=== PATIENT | female | born 1970 | race Hispanic/Latino ===

== ENCOUNTER 2019-06-18 21:01 | Inpatient (IN) | payer SELFPAY ==
[~2019-06-18] VITALS: Ht 162.6 cm; Wt 82.2 kg
[2019-06-18] MEDS ORDERED: SODIUM CHLORIDE 0.9% 1000ML 1,000 ML IV ONE ×3 (21:21→23:42)
[2019-06-18] MEDS ORDERED: ONDANSETRON HCL 4 MG/2 ML VIAL ONE (21:21)
[2019-06-18 21:32] LABS: EOSINOPHILS % (AUTO) 2.4 % (0.0-8.0); HEMATOCRIT 46.7 % (36-48); LYMPHOCYTES % (AUTO) 40.9 % (21.0-51.0); MEAN CORPUSCULAR HGB CONC 33.8 g/dL (32.0-36.0); MEAN CORPUSCULAR VOLUME 91.8 fL (79-99); MONOCYTES % (AUTO) 6.1 % (3.0-13.0); NEUTROPHILS % (AUTO) 49.6 % (40.0-77.0); PLATELET COUNT (AUTO) 306 K/uL (130-400); RED BLOOD CELL COUNT(AUTO) 5.09 MIL/uL (4.00-5.50); RED CELL DISTRIBUTION WIDTH 14.5 % (11.0-15.5); WHITE BLOOD COUNT (AUTO) 12.6 K/uL (4.8-10.8)
[2019-06-18 21:37] LABS: APPEARANCE,URINE Cloudy (CLEAR); BILIRUBIN,URINE Negative (NEGATIVE); COLOR,URINE Yellow (YELLOW); GLUCOSE, URINE (UA) >=1000 mg/dL (NEGATIVE); KETONES,URINE Negative (NEGATIVE); LEUKOCYTE ESTERASE ,URINE Moderate (NEGATIVE); NITRATE,URINE Negative (NEGATIVE); OCCULT BLOOD,URINE Moderate (NEGATIVE); PH,URINE 5.5 (5.0-8.0); PROTEIN,URINE Negative (NEGATIVE); UROBILINOGEN,URINE 0.2 mg/dL (0.2-1.0)
[2019-06-18 21:39] LABS: HCG,QUAL RESULT NEGATIVE (NEGATIVE)
[2019-06-18] MEDS ORDERED: KETOROLAC TROMETHAMINE 30MG/ML ONE (21:41)
[2019-06-18 21:46] LABS: BACTERIA,URINE Moderate /HPF (None Seen); MUCUS,URINE Few LPF (None Seen)
[2019-06-18 21:55] LABS: ALBUMIN 3.5 g/dL (3.5-5.0); BILIRUBIN,TOTAL 0.4 mg/dL (0.2-1.0); CREATININE 0.8 mg/dL (0.5-1.5); POTASSIUM 3.4 mmol/L (3.5-5.1); TOTAL PROTEIN, SERUM 8.3 g/dL (6.0-8.3)
[2019-06-18] MEDS ORDERED: IOHEXOL-350 75 ML VIAL IV ONE (22:05)
[2019-06-18 22:07] LABS: INR 0.91 (0.85-1.15); PARTIAL THROMBOPLASTIN TIME 24.3 SEC (26.3-35.5); PROTHROMBIN TIME 9.6 SEC (9.6-11.6)
[2019-06-18] MEDS ORDERED: CEFTRIAXONE SODIUM 1 GM ONE (22:47)
[2019-06-18 22:48] LABS: ABG OXYGEN SATURATION 83.1 % (95.0-99.0); BASE EXCESS,VENOUS BLOOD GAS -0.2 (-2.0-3.0); HCO3,VENOUS BLOOD GAS 24.8 (21.0-28.0); PCO2,VENOUS BLOOD GAS 42 (32-45); PH,VENOUS BLOOD GAS 7.393 (7.350-7.450)
[2019-06-18] MEDS ORDERED: INSULIN HUMULIN R 100 UNIT/ML 3ML ONE (23:43)
[2019-06-19] MEDS ORDERED: SODIUM CHLORIDE 0.9% 1000ML 1,000 ML IV SCH (02:57)
[2019-06-19 03:00] VITALS: BP 149/95
[2019-06-19] MEDS ORDERED: ACETAMINOPHEN 325 MG TAB PO PRN ×2 (03:00)
[2019-06-19] MEDS ORDERED: FAMOTIDINE/PF 20 MG/2 ML VIAL IV SCH (03:15)
[2019-06-19] MEDS ORDERED: KETOROLAC TROMETHAMINE 30MG/ML ONE (04:26)
[2019-06-19] MEDS: INSULIN HUMULIN R 100 UNIT/ML 3ML SQ SCH ×4 (06:32→20:47)
[2019-06-19 08:00] VITALS: BP 134/78
[2019-06-19] MEDS ORDERED: FLUCONAZOLE 100 MG TAB PO SCH (09:00)
[2019-06-19] MEDS: KETOROLAC TROMETHAMINE 30MG/ML IV PRN ×2 (09:02→15:47)
[2019-06-19] MEDS: PHENAZOPYRIDINE HCL 200 MG TABLET PO SCH ×3 (09:06→20:49)
[2019-06-19] MEDS: ENOXAPARIN SODIUM 30 MG/0.3 ML SQ SCH (09:07)
[2019-06-19] MEDS: ONDANSETRON HCL 4 MG/2 ML VIAL IV PRN ×2 (09:15→20:56)
[2019-06-19 11:51] VITALS: BP 138/93
--- NOTE | 2019-06-19 11:56 | NUR ---
Nutrition Intervention: Nutrition consult due to new onset DM. Pt. on 75gm CCD diet with good p.o. intake, as per pt. Labs reviewed(Alb 3.5, BG 320). LBM: 06/18/19. SR-aldair Bergeron. BMI: 31.1, Obesity Grade 1. Pt. educated on Diabetic diet and provided with education material. Pt. verbalized understanding. Recommendations: 1) Continue current diet. 2) Diabetic diet education given to patient. 3) Continue to monitor pt's nutritional status. 4) Consult RD as nutrition concerns arise. Addendum: 06/19/19 at [address] Amended: Links added.
[2019-06-19] MEDS ORDERED: POTASSIUM CHLORIDE 20MEQ/100ML 100 ML IV PRN (13:00)
[2019-06-19] MEDS ORDERED: LIDOCAINE HCL-MPF 1% 2ML VIAL IV PRN (13:00)
[2019-06-19] MEDS ORDERED: POTASSIUM CHLORIDE 10% ELIXIR 20 MEQ/15 ML UDCUP PO PRN (13:00)
[2019-06-19] MEDS: POTASSIUM CHLORIDE 20 MEQ ERTAB PO PRN ×2 (14:12→18:45)
[2019-06-19 16:00] VITALS: BP 147/92
--- NOTE | 2019-06-19 17:01 | NUR ---
Initial: Met w pt this afternoon to discuss dcp. Pt mentions that she lives w her spouse/son and dtr. Prior to admission she was independent w ambulation and ADLs. She does not own any DME or receive services. per pt she feels safe and comfortable to return home at ca. Provided pt w low income packet and discussed importance of establishing care w PCP. DCP for home. CM to continue to follow and wait for Md recommendations. Addendum: 06/20/19 at 1803 by ANGIE LESLIE CM Amended: Links added.
[2019-06-19 20:00] VITALS: BP 148/93
[2019-06-19] MEDS: CEFTRIAXONE SODIUM 1 GM IV SCH (20:49)
[2019-06-19] MEDS: FAMOTIDINE 20MG TAB 20 MG TAB PO SCH (20:49)
[2019-06-20] VITALS: BP 129/77
[2019-06-20 04:00] VITALS: BP 148/89
[2019-06-20 06:26] LABS: CREATININE 0.6 mg/dL (0.5-1.5); POTASSIUM 3.7 mmol/L (3.5-5.1)
[2019-06-20 06:28] LABS: HEMOGLOBIN A1C 11.5 % (4.0-6.0)
[2019-06-20 06:30] LABS: HEMATOCRIT 40.3 % (36-48); MEAN CORPUSCULAR HEMOGLOBIN 31.2 pg (27.0-33.0); MEAN CORPUSCULAR HGB CONC 33.8 g/dL (32.0-36.0); MEAN CORPUSCULAR VOLUME 92.2 fL (79-99); PLATELET COUNT (AUTO) 219 K/uL (130-400); RED BLOOD CELL COUNT(AUTO) 4.37 MIL/uL (4.00-5.50); RED CELL DISTRIBUTION WIDTH 14.4 % (11.0-15.5); WHITE BLOOD COUNT (AUTO) 7.5 K/uL (4.8-10.8)
[2019-06-20] MEDS: INSULIN HUMULIN R 100 UNIT/ML 3ML SQ SCH ×4 (07:22→20:05)
[2019-06-20 08:00] VITALS: BP 150/70
[2019-06-20] MEDS: FAMOTIDINE 20MG TAB 20 MG TAB PO SCH ×2 (09:03→20:01)
[2019-06-20] MEDS: PHENAZOPYRIDINE HCL 200 MG TABLET PO SCH ×3 (09:03→20:04)
[2019-06-20] MEDS: ENOXAPARIN SODIUM 30 MG/0.3 ML SQ SCH (09:04)
[2019-06-20] MEDS: KETOROLAC TROMETHAMINE 30MG/ML IV PRN ×2 (09:04→20:08)
[2019-06-20 12:00] VITALS: BP 138/79
[2019-06-20] MEDS ORDERED: METFORMIN HCL 500 MG TAB.SR.24H PO SCH (13:15)
[2019-06-20 15:45] VITALS: BP 133/76
[2019-06-20] MEDS: METFORMIN HCL 500 MG TAB.SR.24H PO SCH (16:23)
[2019-06-20 20:00] VITALS: BP 154/78
[2019-06-20] MEDS: CEFTRIAXONE SODIUM 1 GM IV SCH (20:01)
[2019-06-21] VITALS: BP 137/74
[2019-06-21 04:00] VITALS: BP 129/73
[2019-06-21 05:10] LABS: CREATININE 0.7 mg/dL (0.5-1.5); POTASSIUM 3.5 mmol/L (3.5-5.1)
[2019-06-21 05:11] LABS: HEMATOCRIT 41.5 % (36-48); MEAN CORPUSCULAR HEMOGLOBIN 31.6 pg (27.0-33.0); MEAN CORPUSCULAR HGB CONC 33.9 g/dL (32.0-36.0); MEAN CORPUSCULAR VOLUME 93.2 fL (79-99); PLATELET COUNT (AUTO) 209 K/uL (130-400); RED BLOOD CELL COUNT(AUTO) 4.45 MIL/uL (4.00-5.50); RED CELL DISTRIBUTION WIDTH 14.5 % (11.0-15.5)
[2019-06-21] MEDS: INSULIN HUMULIN R 100 UNIT/ML 3ML SQ SCH ×2 (06:22→12:15)
[2019-06-21 07:39] VITALS: BP 126/80
[2019-06-21] MEDS: METFORMIN HCL 500 MG TAB.SR.24H PO SCH ×2 (08:15→16:49)
[2019-06-21] MEDS: FAMOTIDINE 20MG TAB 20 MG TAB PO SCH (08:15)
[2019-06-21] MEDS: ENOXAPARIN SODIUM 30 MG/0.3 ML SQ SCH (08:18)
[2019-06-21] MEDS: PHENAZOPYRIDINE HCL 200 MG TABLET PO SCH ×2 (08:21→12:26)
[2019-06-21 12:00] VITALS: BP 127/88
[2019-06-21] MEDS: POTASSIUM CHLORIDE 20 MEQ ERTAB PO PRN ×2 (13:55→16:49)
[2019-06-21] MEDS ORDERED: FLUCONAZOLE 100 MG TAB PO SCH (14:15)
[2019-06-21] MEDS ORDERED: LACTULOSE 20 GM/30 ML UDCUP PO SCH (15:15)
[2019-06-21] MEDS ORDERED: FLUC150T PO (15:18)
[2019-06-21] MEDS ORDERED: METF-444 PO (15:20)
[2019-06-21 17:54] VITALS: BP 113/73
--- NOTE | 2019-06-21 19:45 | NUR ---
PATIENT WAS PROVIDED WITH DISCHARGE INFORMATION AND FOLLOW UP RECOMMENDATION. SHE WAS INFORMED THAT HER PRESCRIPTIONS WERE SENT TO HER PREFERRED PHARMACY AND SHE RETURNED UNDERSTANDING. IV ACCESS WAS REMOVED WITHOUT PROBLEM. PATIENT LEFT THE UNIT IN STABLE CONDITION IN CARE OF SELF AND SPOUSE.
== END 2019-06-21 19:50 | disposition home or self-care (01) | DRG 690 ==
LOC: EDH 21:01 → EDHIP 21:02 → 3CH 06-19 02:57
PROVIDERS: ADMIT Internal Medicine; ATTEND Internal Medicine
DX: N39.0 Urinary tract infection, site not specified (principal); E11.65 Type 2 diabetes mellitus with hyperglycemia; I10 Essential (primary) hypertension; B37.3 Candidiasis of vulva and vagina; E66.9 Obesity, unspecified; Z68.31 Body mass index [BMI] 31.0-31.9, adult; Z86.32 Personal history of gestational diabetes
CPT/HCPCS: 36415; 36600; 74177; 76856; 80048; 80053; 81001; 81025; 82010; 82803; 82948; 83036; 83605; 84484; 85025; 85027; 85610; 85730; 87040; 87088; 93005; G0378; J0696; J1650; J1815; J1885; J2405; J3490; J7030; Q9967

== ENCOUNTER 2020-01-19 03:28 | Observation (INO) | payer OTHER ==
[~2020-01-19] VITALS: Ht 162.6 cm; Wt 87.8 kg
[~2020-01-19 03:28] MED LIST: FLUC150T PO; METF-444 PO
[2020-01-19] MEDS ORDERED: ASPIRIN 325 MG TABLET ONE (03:30)
[2020-01-19] MEDS ORDERED: NITROGLYCERIN 1GM/1 INCH PACKET TD ONE (03:42)
[2020-01-19 03:44] LABS: BASOPHILS % (AUTO) 0.5 % (0.0-5.0); EOSINOPHILS % (AUTO) 1.7 % (0.0-8.0); LYMPHOCYTES % (AUTO) 33.9 % (21.0-51.0); MEAN CORPUSCULAR HEMOGLOBIN 28.5 pg (27.0-33.0); MEAN CORPUSCULAR HGB CONC 32.9 g/dL (32.0-36.0); MEAN CORPUSCULAR VOLUME 86.7 fL (79-99); MONOCYTES % (AUTO) 5.4 % (3.0-13.0); NEUTROPHILS % (AUTO) 58.2 % (40.0-77.0); PLATELET COUNT (AUTO) 284 K/uL (130-400); RED BLOOD CELL COUNT(AUTO) 4.73 MIL/uL (4.00-5.50); RED CELL DISTRIBUTION WIDTH 12.7 % (11.0-15.5); WHITE BLOOD COUNT (AUTO) 10.8 K/uL (4.8-10.8)
[2020-01-19 03:50] LABS: CREATININE 0.8 mg/dL (0.5-1.5); POTASSIUM 3.9 mmol/L (3.5-5.1)
[2020-01-19] MEDS ORDERED: INSULIN HUMULIN R 100 UNIT/ML 3ML ONE (04:30)
[2020-01-19] MEDS ORDERED: MORPHINE SULFATE 2 MG/ML 1ML SYG IVP PRN (05:00)
[2020-01-19] MEDS ORDERED: GLUCAGON 1MG KIT 1 MG ML IM PRN (05:00)
[2020-01-19] MEDS ORDERED: ONDANSETRON HCL 4 MG/2 ML VIAL IV PRN (05:00)
[2020-01-19] MEDS ORDERED: DEXTROSE 50%-WATER 50 ML DISP.SYRIN IV PRN (05:00)
[2020-01-19] MEDS ORDERED: ACETAMINOPHEN 325 MG TAB PO PRN ×2 (05:00)
[2020-01-19] MEDS ORDERED: HYDRALAZINE HCL 20 MG/ML VIAL IV PRN (05:00)
[2020-01-19] MEDS: NITROGLYCERIN 1GM/1 INCH PACKET TD SCH ×3 (05:00→20:38)
[2020-01-19 05:14] LABS: APPEARANCE,URINE Clear (CLEAR); BILIRUBIN,URINE Negative (NEGATIVE); COLOR,URINE Yellow (YELLOW); GLUCOSE, URINE (UA) >=1000 mg/dL (NEGATIVE); KETONES,URINE 15 mg/dL (NEGATIVE); LEUKOCYTE ESTERASE ,URINE Trace (NEGATIVE); NITRATE,URINE Negative (NEGATIVE); OCCULT BLOOD,URINE Negative (NEGATIVE); PROTEIN,URINE Negative (NEGATIVE)
[2020-01-19] MEDS: SODIUM CHLORIDE 0.9% 1000ML 1,000 ML IV SCH (05:15)
[2020-01-19 05:20] LABS: BACTERIA,URINE None Seen /HPF (None Seen); MUCUS,URINE None Seen LPF (None Seen); RBC,URINE None Seen /HPF (0-1); SQUAMOUS EPITHELIAL CELL,UR None Seen /HPF (0-2); WBC,URINE 0-1 /HPF (0-1)
[2020-01-19 06:00] VITALS: BP 118/58
[2020-01-19] MEDS ORDERED: GABA-529 PO (06:06)
[2020-01-19] MEDS ORDERED: ATOR40TA69 PO (06:06)
[2020-01-19] MEDS ORDERED: ASPI-556 PO (06:06)
[2020-01-19] MEDS ORDERED: GLIP10TA9 PO (06:06)
[2020-01-19] MEDS ORDERED: LISI10TA7 PO (06:06)
--- NOTE | 2020-01-19 06:24 | NUR ---
ER ADMIT Admitted from ER,aao x 3.Admission care rendered.
[2020-01-19] MEDS: INSULIN HUMULIN R 100 UNIT/ML 3ML SQ SCH ×4 (06:42→20:36)
[2020-01-19 08:01] VITALS: BP 133/78
[2020-01-19 08:40] LABS: HEMOGLOBIN A1C 10.5 % (4.0-6.0)
[2020-01-19 08:47] LABS: THYROID STIMULATING HORMONE 3.59 uIU/mL (0.36-3.74)
[2020-01-19] MEDS: FAMOTIDINE/PF 20 MG/2 ML VIAL IV SCH ×2 (09:55→20:25)
[2020-01-19] MEDS: ASPIRIN 81 MG EC TAB PO SCH (09:55)
[2020-01-19 10:08] LABS: TROPONIN I 0.04 ng/mL (0.00-0.06)
--- NOTE | 2020-01-19 10:26 | NUR ---
DCP: HOME met with pt who lives with her Leodan [phone] and their kids 17 and 8. Pt reports she is independent of all ADLS, no DME, states she needs cane and glucometer. Pt admits she does not check her blood sugars as she should. Pt has no in home care services. PCP is Jailene Malcolm, and she uses [facility] for rx. Plan is home with family Addendum: 01/19/20 at 1029 by DAVID BALTAZAR Amended: Links added.
[2020-01-19 11:03] VITALS: BP 123/75
--- NOTE | 2020-01-19 12:30 | NUR ---
DR. NUNO REINA SPOKE TO PATIENT AT BEDSIDE AND FOUND A LUMP TO THE LEFT BREAST. PT HAD PAIN UPON PALPATION TO LEFT BREAST. DR. REINA STATED NO FURTHER CARDIAC WORKUP AND SIGNED OFF ON PATIENT.
[2020-01-19] MEDS: GABAPENTIN 100 MG CAPSULE PO SCH ×2 (14:42→20:24)
[2020-01-19 16:33] VITALS: BP 130/81
[2020-01-19] MEDS ORDERED: KETOROLAC TROMETHAMINE 15MG/ML IV SCH (18:45)
[2020-01-19 19:34] VITALS: BP 122/71
[2020-01-19 23:07] VITALS: BP 115/68
[2020-01-20 03:24] VITALS: BP 133/78
[2020-01-20 04:14] LABS: HEMATOCRIT 37.7 % (36-48); MEAN CORPUSCULAR HEMOGLOBIN 29.2 pg (27.0-33.0); MEAN CORPUSCULAR HGB CONC 33.4 g/dL (32.0-36.0); MEAN CORPUSCULAR VOLUME 87.3 fL (79-99); RED BLOOD CELL COUNT(AUTO) 4.32 MIL/uL (4.00-5.50); RED CELL DISTRIBUTION WIDTH 12.6 % (11.0-15.5); WHITE BLOOD COUNT (AUTO) 10.6 K/uL (4.8-10.8)
[2020-01-20] MEDS: NITROGLYCERIN 1GM/1 INCH PACKET TD SCH (04:18)
[2020-01-20 04:44] LABS: ALBUMIN 2.9 g/dL (3.5-5.0); BILIRUBIN,TOTAL 0.6 mg/dL (0.2-1.0); CREATININE 0.7 mg/dL (0.5-1.5); POTASSIUM 3.7 mmol/L (3.5-5.1); THYROID STIMULATING HORMONE 0.83 uIU/mL (0.36-3.74); TOTAL PROTEIN, SERUM 6.8 g/dL (6.0-8.3)
[2020-01-20] MEDS: INSULIN HUMULIN R 100 UNIT/ML 3ML SQ SCH ×2 (05:56→12:17)
[2020-01-20 08:08] VITALS: BP 125/75
[2020-01-20] MEDS: GABAPENTIN 100 MG CAPSULE PO SCH (08:35)
[2020-01-20] MEDS: FAMOTIDINE/PF 20 MG/2 ML VIAL IV SCH (08:35)
[2020-01-20] MEDS: ASPIRIN 81 MG EC TAB PO SCH (08:36)
[2020-01-20] MEDS: SODIUM CHLORIDE 0.9% 1000ML 1,000 ML IV SCH (08:39)
[2020-01-20] MEDS ORDERED: LISINOPRIL 10 MG TABLET PO SCH (09:00)
--- NOTE | 2020-01-20 10:00 | NUR ---
CESAR GUERRERO SPOKE TO PATIENT AT BEDSIDE OK TO D/C HOME AND F/U WITH PRIMARY ON FRIDAY.
[2020-01-20 11:19] VITALS: BP 130/77
--- NOTE | 2020-01-20 12:25 | NUR ---
D/C PT A/WA X3 LEFT VIA WHEELCHAIR IN PVT CAR WITH SISTER. PT V/S STABLE NO CHEST PAIN AND NO COMPLICATIONS UPON D/C. PT GIVEN WRITTEN INSTRUCTIONS TO F/U WITH PCP ON FRIDAY.
== END 2020-01-20 12:28 | disposition home or self-care (01) ==
LOC: EDH 03:28 → EDHIP 04:57 → INTOOBSV 04:57 → 3CH 06:09
PROVIDERS: ADMIT Internal Medicine; ATTEND Internal Medicine
DX: I20.0 Unstable angina (principal); R42 Dizziness and giddiness; E11.65 Type 2 diabetes mellitus with hyperglycemia; I11.9 Hypertensive heart disease without heart failure; E11.42 Type 2 diabetes mellitus with diabetic polyneuropathy; E78.5 Hyperlipidemia, unspecified; E66.9 Obesity, unspecified; Z79.82 Long term (current) use of aspirin; Z79.4 Long term (current) use of insulin; Z79.899 Other long term (current) drug therapy; Z68.33 Body mass index [BMI] 33.0-33.9, adult
CPT/HCPCS: 36415 ×2; 71045; 76641 ×2; 80048; 80053; 80061 ×2; 81001; 82550; 82948 ×7; 83036; 83874; 84145; 84443 ×2; 84484 ×2; 85025; 85027; 93005 ×2; 93306; 93356; 96361; 96372 ×2; 96374; 96375; 96376 ×2; 99291; G0378 ×30; J1815 ×6; J1885; J3490 ×3